=== PATIENT | male | born 1970 | race Hispanic/Latino ===

== ENCOUNTER 2016-06-20 06:01 | Day surgery (SDC) | payer OTHER ==
[2016-06-20] MEDS ORDERED: WATER FOR IRRIG STERILE IR ONE (07:10)
[2016-06-20] MEDS ORDERED: DIPRIVAN 10 MG/ML IV ONE ×2 (07:21)
--- NOTE | 2016-06-20 07:24 | Anesthesia Consultation ---
Anesthesia Consult and Med Hx Date of service: 06/20/16 - Airway Anesthetic Teeth Evaluation: Good ROM Head & Neck: Adequate Mental/Hyoid Distance: Adequate Mallampati Class: Class II Intubation Access Assessment: Probably Good - Pulmonary Exam CTA: Yes - Cardiac Exam Cardiac Exam: RRR - Pre-Operative Health Status ASA Pre-Surgery Classification: ASA3 Proposed Anesthetic Plan: MAC - Pulmonary Hx Sleep Apnea: Yes (no CPAP) - Central Nervous System Hx Back Pain: Yes (and knee) - Gastrointestinal Hx Gastroesophageal Reflux Disease: Yes (food related) - Endocrine Hx Insulin Dependent Diabetes: Yes Hx Hypothyroidism: Yes - Other Systems Hx Obesity: Yes
--- NOTE | 2016-06-20 07:25 | Anesthesia Day of Surgery ---
Anesthesia Day of Surgery - Day of Surgery Patient Examined: Yes Patient H&P Reviewed: Yes Patient is NPO: Yes
[2016-06-20] MEDS ORDERED: NACL 0.9% 1000 ML 1,000 ML IV SCH (08:00)
--- NOTE | 2016-06-20 08:16 | Operative Report ---
Operative Report Operative Report: OPERATIVE REPORT - EGD DATE 06/20/2016 SURGERY: Upper endoscopy. SURGEON: Negro Bernabe M.D. WHEELMAN: Wali Clifton MD PRE OP DX: Dyspepsia POST OP DX: Hiatal Hernia TYPE OF ANESTHESIA: MAC. ESTIMATED BLOOD LOSS: None. COMPLICATIONS: None. SPECIMENS REMOVED: None. FINDINGS: 1. Hiatal hernia. 2. moderate amount of food troughout the stomach 2. Otherwise, normal esophagus, stomach and first portion of duodenum. INDICATIONS:INDICATION FOR PROCEDURE: Patient is a 46-year-old male with a long history of morbid obesity. He is planned to have a weight loss procedure and is here for preoperative planning EGD. PROCEDURE DETAILS: After consent was reviewed, patient was taken back to the operating room where patient was placed in the left lateral decubitus position and a bite block was placed in the mouth. After a time-out was called, MAC anesthesia was initiated. I then passed the endoscope into his oropharynx, into his esophagus, visualized the entire esophagus, which was all within normal limits. I then visualized the stomach and the first portion of the duodenum. Mucosal visualization was suboptimal due to moderate amount of food. I then retroflexed the scope in the stomach and visualized the hiatus and I could see a midium size hiatal hernia. I then desufflated the stomach and removed the endoscope. Patient tolerated procedure well and was transferred to recovery room in good and stable condition.
--- NOTE | 2016-06-20 08:17 | Discharge Summary ---
Providers - Providers Date of discharge: 06/20/16 Attending physician: SILVA MURRIETA Hospitalization Reason for admission: outpatient EGD Condition: Stable Procedures: EGD Disposition: DISCHARGED TO HOME OR SELFCARE Core Measure Documentation - Palliative Care Palliative Care/ Comfort Measures: Not Applicable - Core Measures Any of the following diagnoses?: none Exam - Physical Exam Narrative exam: unchanged since preop - Constitutional Vitals: Temp Pulse Resp BP Pulse Ox 98 F 79 11 L 141/56 95 06/20/16 07:25 06/20/16 07:25 06/20/16 07:25 06/20/16 07:25 06/20/16 07:25 Plan Activity: advance as tolerated Diet: low carbohydrate
[2016-06-20 08:45] VITALS: BP 147/69
--- NOTE | 2016-06-20 12:05 | Post Anesthesia Evaluation ---
- Post Anesthesia Evaluation Patient Participated: Yes Airway Patent: Yes Stable Respiratory Function: Yes Nausea/Vomiting: No Temp > 96.8F: Yes Pain Manageable: Yes Adequeate Hydration: Yes Anesthesia Complications: No Block Receding Appropriately: Not Applicable Patient on Ventilator: No
== END 2016-06-20 06:02 | disposition home or self-care (01) ==
LOC: GIO 06:01
PROVIDERS: ATTEND Specialist
DX: K44.9 Diaphragmatic hernia without obstruction or gangrene (principal); K21.9 Gastro-esophageal reflux disease without esophagitis; E11.9 Type 2 diabetes mellitus without complications; E03.9 Hypothyroidism, unspecified; E66.01 Morbid (severe) obesity due to excess calories; Z68.44 Body mass index [BMI] 60.0-69.9, adult; Z98.890 Other specified postprocedural states; Z80.9 Family history of malignant neoplasm, unspecified; Z83.3 Family history of diabetes mellitus
CPT/HCPCS: 43235; 82962; J2704; J7030